=== PATIENT | male | born 1990 | race African-American/Black ===

== ENCOUNTER 2020-01-31 07:27 | Emergency (ER) | payer SELFPAY ==
[2020-01-31 07:30] VITALS: BP 155/90; PULSE 73; RESP 16; TEMP 36.8; O2SAT 99
[2020-01-31 08:00] LABS: Add Urine Microscopic? NO; Appearance Urine Clear (Clear); Bacteria Urine Trace /hpf; Bilirubin Urine Negative (Negative); Blood Urine Negative (Negative); Color Urine Yellow (Yellow); Glucose Urine UA Negative (Negative); Ketones Urine Negative (Negative); Leukocyte Esterase Ur Negative LEU/UL (Negative); Nitrate Urine Negative (Negative); Protein Urine Negative (Negative); Specific Grav Ur 1.013 (1.001-1.035); Urobilinogen Urine Negative mg/dL (<2.0); WBC Urine 0-3 /hpf
--- NOTE | 2020-01-31 08:11 | ED.GENADULT ---
HPI - General Adult General Chief complaint: Urogenital-Male Stated complaint: Painful urination Time Seen by Provider: 01/31/20 07:29 Source: RN notes reviewed History of Present Illness HPI narrative: Patient presents emergency department from home for painful urination. Patient states symptoms began yesterday. States that it crane when he urinates. Also noticed some clear discharge starting last night. Denies any fevers or chills abdominal pain nausea vomiting testicular pain or any other symptoms. States he is taken no medication for the symptoms. Related Data Home Medications Medication Instructions Recorded Confirmed No Home Medications 01/31/20 01/31/20 Allergies Allergy/AdvReac Type Severity Reaction Status Date / Time No Known Allergies Allergy Verified 01/31/20 07:33 Review of Systems Review of Systems: Narrative: Gen.: Denies fevers or chills Respiratory: Denies shortness of breath or cough CV: Denies chest pain or palpitations GI: Denies abdominal pain nausea, emesis or diarrhea see HPI Musculoskeletal: Denies back pain or muscle pain Neuro: Denies headache or weakness Skin: Denies rash Except as documented, all other systems reviewed and negative [facility] Past Medical History Medical History (Updated 01/31/20 @ 08:14 by Jeffrey Jauregui DO) Patient denies significant medical history Social History Social History (Updated 01/31/20 @ 08:12 by Jeffrey Jauregui DO) Smoking status: Never smoker Exam Narrative: Exam Narrative: APPEARANCE: No acute distress, nontoxic, resting in bed EYES: EOMI HEENT: Normocephalic, atraumatic, OMM RESPIRATORY: No respiratory distress ABDOMINAL: Soft, nontender, nondistended, no rebound or guarding : Circumcised male, no skin lesions, clear discharge at meatus, no scrotal swelling or erythema no testicular tenderness MUSCULOSKELETAl: Moves all extremities. No clubbing, cyanosis or edema. NEURO: Awake and alert. Following commands, speech normal, no focal deficits SKIN:: Warm, dry. No rashes lesions or abrasions PSYCHIATRIC: Normal affect/mood, Course Course Emergency Course: Discussed with patient and will treat for possible STD with testing sent for chlamydia and gonorrhea Discussed with patient results of workup and diagnosis. Discussed need for follow-up with primary care, proper use of medication, and reasons to return to the emergency department. Patient understands and agrees to current treatment plan Vital Signs Vital signs: Vital Signs Temperature 98.2 F 01/31/20 07:30 Pulse Rate 73 01/31/20 07:30 Respiratory Rate 16 01/31/20 07:30 Blood Pressure 155/90 H 01/31/20 07:30 Pulse Oximetry 99 01/31/20 07:30 Temperature 98.2 F 01/31/20 07:30 Pulse Rate 73 01/31/20 07:30 Respiratory Rate 16 01/31/20 07:30 Blood Pressure 155/90 H 01/31/20 07:30 Pulse Oximetry 99 01/31/20 07:30 Medical Decision Making Vital Signs Vital Signs: Vital Signs Temperature 98.2 F 01/31/20 07:30 Pulse Rate 73 01/31/20 07:30 Respiratory Rate 16 01/31/20 07:30 Blood Pressure 155/90 H 01/31/20 07:30 Pulse Oximetry 99 01/31/20 07:30 Temperature 98.2 F 01/31/20 07:30 Pulse Rate 73 01/31/20 07:30 Respiratory Rate 16 01/31/20 07:30 Blood Pressure 155/90 H 01/31/20 07:30 Pulse Oximetry 99 01/31/20 07:30 Lab Data Labs: Lab Results 01/31/20 Range/Units 07:43 Urine Color Yellow (Yellow) Urine Appearance Clear (Clear) Urine pH 7.0 (5.0-9.0) Ur Specific [place] 1.013 (1.001-1.035) Urine Protein Negative (Negative) mg/dL Urine Glucose (UA) Negative (Negative) mg/dL Urine Ketones Negative (Negative) mg/dL Ur Blood (Man) Negative (Negative) Urine Nitrate Negative (Negative) Urine Bilirubin Negative (Negative) Urine Urobilinogen Negative (<2.0) mg/dL Leukocyte Esterase Rfl Negative (Negative) JANICE/UL Urine WBC 0-3 /hpf Urine Bacteria Trace /hpf
[2020-01-31] MEDS: AZITHROMYCIN 250 MG TABLET 1000 MG PO (08:50)
[2020-01-31] MEDS: cefTRIAXone 250 MG VIAL IM (08:50)
--- NOTE | 2020-01-31 09:33 | PC.NURSE ---
lab requesting additional urine for sti testing. pt discharged.
== END 2020-01-31 09:14 | disposition home or self-care (01) ==
PROVIDERS: Emergency Provider Emergency Medicine
DX: N34.2 Other urethritis (principal)
CPT/HCPCS: 81003; 96372; 99283; A9270; J0696

== ENCOUNTER 2020-03-04 05:43 | Emergency (ER) | payer SELFPAY ==
[2020-03-04] VITALS (7 sets, daily range): BP systolic 128–149; BP diastolic 79–92; PULSE 56; RESP 18; TEMP 36.3; O2SAT 99
[2020-03-04 06:28] LABS: Add Urine Microscopic? NO; Appearance Urine Clear (Clear); Bilirubin Urine Negative (Negative); Blood Urine Negative (Negative); Color Urine Straw (Yellow); Glucose Urine UA Negative (Negative); Ketones Urine Negative (Negative); Leukocyte Esterase Ur Negative LEU/UL (Negative); Nitrate Urine Negative (Negative); Protein Urine Negative (Negative); RBC Urine 0-2 /hpf (0-2); Specific Grav Ur 1.006 (1.001-1.035); Urobilinogen Urine Negative mg/dL (<2.0); WBC Urine 0-3 /hpf
--- NOTE | 2020-03-04 07:08 | ED.MALEGU ---
HPI - Male Genitourinary General Chief complaint: Urogenital-Male Stated complaint: painful urination Time Seen by Provider: 03/04/20 06:32 Source: patient Mode of arrival: ambulatory Limitations: no limitations History of Present Illness HPI Narrative: This patient is a 29 year old male who presents for evaluation of burning with urination. Patient reports he started having burning with urination 2 days ago. He also has clear discharge. He denies penile lesions, abdominal pain, rectal pain, nausea, vomiting or fever. He also denies testicular pain. Related Data Allergies Allergy/AdvReac Type Severity Reaction Status Date / Time No Known Allergies Allergy Verified 01/31/20 07:33 Review of Systems Review of Systems: All systems reviewed & are unremarkable except as noted in HPI and below PMFSH Past Medical History Medical History (Updated 03/04/20 @ 07:13 by Brianna Whitaker MD) Patient denies significant medical history Surgical History Surgical History (Updated 03/04/20 @ 07:10 by Brianna Whitaker MD) No pertinent past surgical history Social History Social History (Updated 01/31/20 @ 08:12 by Jeffrey Jauregui DO) Smoking status: Never smoker Exam Narrative: Exam Narrative: GENERAL: Well-appearing, well-nourished, and in no acute distress. HEAD: Normocephalic, atraumatic EYES: PERRLA and EOMI NECK: Supple, without lymphadenopathy or mass RESPIRATORY: No respiratory distress, Airway patent, Respirations non-labored, Clear to auscultation without rales, rhonchi or wheeze HEART: Regular rate and rhythm. No murmur heard. Normal peripheral pulses. ABDOMEN: Soft, nontender, nondistended, normal active bowel sounds. No masses. No rebound or guarding, No organomegaly. EXTREMITIES: No edema, normal strength with full range of motion. SKIN: Warm, dry, normal color without rash NEURO: Alert and oriented x3. CN 2-12 grossly intact. No focal deficits. PSYCH: Normal mood and affect. : Penis: Yes circumcised and No vesicles Meatus: meatus normal Scrotum: scrotum normal Course Vital Signs Vital signs: Vital Signs Temperature 97.4 F L 03/04/20 05:46 Pulse Rate 56 L 03/04/20 05:46 Respiratory Rate 18 03/04/20 05:46 Blood Pressure 149/79 H 03/04/20 05:46 Pulse Oximetry 99 03/04/20 05:46 Temperature 97.4 F L 03/04/20 05:46 Pulse Rate 56 L 03/04/20 05:46 Respiratory Rate 18 03/04/20 05:46 Blood Pressure 140/86 03/04/20 07:15 Pulse Oximetry 99 03/04/20 05:46 MDM - Male Genitourinary Lab Data Labs: Lab Results 03/04/20 03/04/20 Range/Units 06:10 06:11 Urine Color Straw (Yellow) Urine Appearance Clear (Clear) Urine pH 7.0 (5.0-9.0) Ur Specific [place] 1.006 (1.001-1.035) Urine Protein Negative (Negative) mg/dL Urine Glucose (UA) Negative (Negative) mg/dL Urine Ketones Negative (Negative) mg/dL Ur Blood (Man) Negative (Negative) Urine Nitrate Negative (Negative) Urine Bilirubin Negative (Negative) Urine Urobilinogen Negative (<2.0) mg/dL Leukocyte Esterase Rfl Negative (Negative) JANICE/UL Urine RBC 0-2 (0-2) /hpf Urine WBC 0-3 /hpf C.trachomatis RNA (TMA) Pending N.gonorrhoeae RNA (TMA) Pending Urine Characteristics Clear Discharge Plan Discharge Clinical Impression: Urethritis Patient Disposition: Home, Self-Care Condition: Stable Instructions: Antibiotic Form, Urinary Tract Infection in Men (ED) Additional Instructions: Watch for sores of your penis. If you develop sores you may need to be tested for HSV Prescriptions: New moxifloxacin 400 mg tablet 400 mg PO DAILY 7 Days Qty: 7 RF: 0 phenazopyridine [Pyridium] 100 mg tablet 100 mg PO TID PRN (Reason: pain) Qty: 6 RF: 0 Follow-up/Referrals: PHYSICIAN,DELINQUENT TAX COLLECTOR [Primary Care Provider] - Jackson Echevarria MD [Physician] - Discharge Date/Time: 03/04/20 07:47
[2020-03-04] MEDS: cefTRIAXone 250 MG VIAL IM (07:35)
[2020-03-04] MEDS: AZITHROMYCIN 250 MG TABLET 1000 MG PO (07:35)
[2020-03-04] MEDS: LIDOCAINE HCL 1% LOCAL INJ 20 ML VIAL (07:45)
== END 2020-03-04 07:47 | disposition home or self-care (01) ==
PROVIDERS: Emergency Provider General Practice
DX: N34.2 Other urethritis (principal)
CPT/HCPCS: 81003; 87491; 87591; 96372; 99283; A9270; J0696

== ENCOUNTER 2020-04-21 03:51 | Emergency (ER) | payer SELFPAY ==
[2020-04-21 03:55] VITALS: BP 150/94; PULSE 61; RESP 16; TEMP 36.9; O2SAT 100
--- NOTE | 2020-04-21 04:29 | ED.GENADULT ---
HPI - General Adult General Chief complaint: Urogenital-Male Stated complaint: discharge Time Seen by Provider: 04/21/20 03:57 Source: RN notes reviewed History of Present Illness HPI narrative: Patient presents emergency department from home for urethral discharge. Patient states symptoms began 2 days ago. He notes a clear discharge as well as dysuria. States he is sexually active and there is risk of a possible STD patient denies any fevers or chills abdominal pain nausea vomiting or any other symptoms denies any testicular pain Related Data Allergies Allergy/AdvReac Type Severity Reaction Status Date / Time No Known Allergies Allergy Verified 01/31/20 07:33 Review of Systems Review of Systems: Narrative: Gen.: Denies fevers or chills ENT: Denies congestion Respiratory: Denies shortness of breath or cough CV: Denies chest pain or palpitations GI: Denies abdominal pain nausea, emesis see HPI Musculoskeletal: Denies back pain or muscle pain Neuro: Denies numbness, tingling, weakness or focal weakness Skin: Denies rash Except as documented, all other systems reviewed and negative PMFSH Past Medical History Medical History Patient denies significant medical history Surgical History Surgical History (Updated 03/04/20 @ 07:10 by Brianna Whitaker MD) No pertinent past surgical history Social History Social History Smoking status: Never smoker Exam Narrative: Exam Narrative: APPEARANCE: No acute distress, nontoxic, resting in bed EYES: EOMI HEENT: Normocephalic, atraumatic, OMM RESPIRATORY: No respiratory distress ABDOMINAL: Soft, nontender, nondistended, no rebound or guarding MUSCULOSKELETAl: Moves all extremities. NEURO: Awake and alert. Following commands, speech normal, no focal deficits SKIN:: Warm, dry. No rashes lesions or abrasions PSYCHIATRIC: Normal affect/mood, Course Course Emergency Course: Discussed with patient treatment for STD in agreement at this time Discussed with patient results of workup and diagnosis. Discussed need for follow-up with primary care, proper use of medication, and reasons to return to the emergency department. Patient understands and agrees to current treatment plan Vital Signs Vital signs: Vital Signs Temperature 98.4 F 04/21/20 03:55 Pulse Rate 61 04/21/20 03:55 Respiratory Rate 16 04/21/20 03:55 Blood Pressure 150/94 H 04/21/20 03:55 Pulse Oximetry 100 04/21/20 03:55 Temperature 98.4 F 04/21/20 03:55 Pulse Rate 61 04/21/20 03:55 Respiratory Rate 16 04/21/20 03:55 Blood Pressure 150/94 H 04/21/20 03:55 Pulse Oximetry 100 04/21/20 03:55 Medical Decision Making Vital Signs Vital Signs: Vital Signs Temperature 98.4 F 04/21/20 03:55 Pulse Rate 61 04/21/20 03:55 Respiratory Rate 16 04/21/20 03:55 Blood Pressure 150/94 H 04/21/20 03:55 Pulse Oximetry 100 04/21/20 03:55 Temperature 98.4 F 04/21/20 03:55 Pulse Rate 61 04/21/20 03:55 Respiratory Rate 16 04/21/20 03:55 Blood Pressure 150/94 H 04/21/20 03:55 Pulse Oximetry 100 04/21/20 03:55 Lab Data Labs: Lab Results 04/21/20 04/21/20 Range/Units 04:41 04:41 Urine Color Yellow (Yellow) Urine Appearance Clear (Clear) Urine pH 6.0 (5.0-9.0) Ur Specific [place] 1.026 (1.001-1.035) Urine Protein Negative (Negative) mg/dL Urine Glucose (UA) Negative (Negative) mg/dL Urine Ketones Negative (Negative) mg/dL Ur Blood (Man) Negative (Negative) Urine Nitrate Negative (Negative) Urine Bilirubin Negative (Negative) Urine Urobilinogen Negative (<2.0) mg/dL Leukocyte Esterase Rfl 1+ H (Negative) JANICE/UL Urine RBC 0-2 (0-2) /hpf Urine WBC 21-30 H /hpf Ur Squamous Epith Cells Rare (Few) /hpf Urine Mucus Rare /lpf C.trachomatis RNA (TMA) Pending N.gonorrhoeae
[2020-04-21 05:02] LABS: Add Urine Microscopic? YES; Appearance Urine Clear (Clear); Bilirubin Urine Negative (Negative); Blood Urine Negative (Negative); Color Urine Yellow (Yellow); Glucose Urine UA Negative (Negative); Ketones Urine Negative (Negative); Leukocyte Esterase Ur 1+ LEU/UL (Negative); Mucus Urine Rare /lpf; Nitrate Urine Negative (Negative); Protein Urine Negative (Negative); RBC Urine 0-2 /hpf (0-2); Specific Grav Ur 1.026 (1.001-1.035); Squamous Epithelial Cell Urine Rare /hpf (Few); Urobilinogen Urine Negative mg/dL (<2.0); WBC Urine 21-30 /hpf
[2020-04-21] MEDS: AZITHROMYCIN 250 MG TABLET 1000 MG PO (05:58)
[2020-04-21] MEDS: cefTRIAXone 250 MG VIAL IM (05:58)
[2020-04-21 06:09] VITALS: BP 140/77; PULSE 68; RESP 18; O2SAT 99
== END 2020-04-21 06:10 | disposition home or self-care (01) ==
PROVIDERS: Emergency Provider Emergency Medicine
DX: N34.2 Other urethritis (principal); N39.0 Urinary tract infection, site not specified
CPT/HCPCS: 81001; 87086; 87491; 87591; 96372; 99283; A9270; J0696

== ENCOUNTER 2020-06-02 06:24 | Emergency (ER) | payer SELFPAY ==
[2020-06-02 06:27] VITALS: BP 168/79; PULSE 54; RESP 16; TEMP 35.8; O2SAT 100
--- NOTE | 2020-06-02 07:21 | ED.MALEGU ---
HPI - Male Genitourinary General Chief complaint: Urogenital-Male Stated complaint: penile discharge Time Seen by Provider: 06/02/20 07:04 History of Present Illness HPI Narrative: 29 yo male w/ h/o trichomoniasis presents to the ED with penile discharge. He reports that his sexual partner was diagnosed with trichomoniasis a few months ago. They were both treated at that time. His symptoms resolved. He recently had unprotected sex with the same person and for the past 5 days he has had penile discharge and burning pain in his penis. Related Data Allergies Allergy/AdvReac Type Severity Reaction Status Date / Time No Known Allergies Allergy Verified 06/02/20 06:33 Review of Systems Review of Systems: All systems reviewed & are unremarkable except as noted in HPI and below Constitutional: Constitutional: Denies chills and Denies fever(s) Cardiovascular: Cardiovascular: Denies chest pain Respiratory: Respiratory: Denies dyspnea Gastrointestinal: Gastrointestinal: Denies abdominal pain, Denies nausea and Denies vomiting Genitourinary: Genitourinary: Denies hematuria, Denies genital lesions, Reports dysuria, Reports penile discharge, Denies testicular pain and Denies urinary frequency Musculoskeletal: Musculoskeletal: Denies back pain Neurologic: Denies weakness PMFSH Past Medical History Medical History Patient denies significant medical history Trichomoniasis Surgical History Surgical History No pertinent past surgical history Social History Social History Smoking status: Never smoker Exam Const: General: healthy appearing, no acute distress and alert Limitations: altered mental status HENMT: Head: normal to inspection Resp: Effort & Inspection: normal respiratory effort Skin: General skin exam: normal color Neuro: General: patient oriented x3 and moves all extremities Speech: normal speech Gait exam (Neuro): Normal gait present Extrem: General: normal to inspection Psych: Appearance: grossly normal and well kempt Mental Status: mental status grossly normal Affect: normal affect Course Vital Signs Vital signs: Vital Signs Temperature 35.8 C L 06/02/20 06:27 Pulse Rate 54 L 06/02/20 06:27 Respiratory Rate 16 06/02/20 06:27 Blood Pressure 168/79 H 06/02/20 06:27 Pulse Oximetry 100 06/02/20 06:27 Temperature 35.8 C L 06/02/20 06:27 Pulse Rate 54 L 06/02/20 06:27 Respiratory Rate 16 06/02/20 06:27 Blood Pressure 168/79 H 06/02/20 06:27 Pulse Oximetry 100 06/02/20 06:27 MDM - Male Genitourinary MDM Narrative Medical decision making narrative: I will send testing and treat empirically for trich and possible coinfection Medical Records Attestation: I reviewed the patient's medical records. Lab Data Labs: Lab Results 06/02/20 06/02/20 Range/Units 06:41 06:41 C.trachomatis RNA (TMA) Cancelled N.gonorrhoeae RNA (TMA) Cancelled Trichomonas Direct ID Pending Discharge Plan Discharge Clinical Impression: Urethritis Patient Disposition: Home, Self-Care Condition: Stable Instructions: Antibiotic Form, Nonspecific Urethritis in Men (ED) Prescriptions: New doxycycline hyclate 100 mg tablet 100 mg PO DAILY 7 Days Qty: 14 RF: 0 No Action moxifloxacin 400 mg tablet 400 mg PO DAILY 7 Days Qty: 7 RF: 0 phenazopyridine [Pyridium] 100 mg tablet 100 mg PO TID PRN (Reason: pain) Qty: 6 RF: 0 sulfamethoxazole-trimethoprim [Bactrim DS] 800-160 mg tablet 1 tablet PO Q12H Qty: 14 RF: 0 metronidazole [Flagyl] 500 mg tablet 500 mg PO Q12H Qty: 14 RF: 0 Follow-up/Referrals: PHYSICIAN,OPERATIONS SECTION MANAGER [Primary Care Provider] -
[2020-06-02] MEDS: DOXYCYCLINE HYCLATE 100 MG TABLET PO (08:00)
[2020-06-02] MEDS: metroNIDAZOLE 250 MG TABLET 2000 MG PO (08:00)
[2020-06-02] MEDS: cefTRIAXone 250 MG VIAL 500 MG IM (08:01)
== END 2020-06-02 08:10 | disposition home or self-care (01) ==
PROVIDERS: Emergency Medicine; Emergency Provider Emergency Medicine
DX: N34.2 Other urethritis (principal)
CPT/HCPCS: 87491; 87591; 87661; 87808; 96372; 99283; A9270; J0696